=== PATIENT | male | born 1985 | race American Indian/Alaskan Native ===

== ENCOUNTER 2018-08-17 10:38 | Inpatient (IN) | payer BC, OTHER ==
[~2018-08-17] VITALS: Ht 200.7 cm; Wt 109.0 kg
[~2018-08-17 10:38] MED LIST changes: -Acetaminophen325 M1 PO; -Ferrous Sulfat325 M2 PO; -PANT40 PO
[2018-08-17 15:12] LABS: BASOPHILS ABSOLUTE AUTO 0.05 K/mm3 (0.00-0.23); BASOPHILS PERCENT AUTO 1 % (0-2); EOSINOPHILS ABSOLUTE AUTO 0.13 K/mm3 (0.00-0.68); EOSINOPHILS PERCENT AUTO 2 % (0-6); Hematocrit 34.6 % (37.0-53.0); Hemoglobin 11.3 g/dL (13.5-17.5); IMMATURE GRAN ABSOLUTE AUTO 0.03 K/mm3 (0.00-0.10); IMMATURE GRAN PERCENT AUTO 0 % (0-1); LYMPHOCYTES ABSOLUTE AUTO 1.97 K/mm3 (0.84-5.20); LYMPHOCYTES PERCENT AUTO 25 % (21-46); MONOCYTES ABSOLUTE AUTO 0.45 K/mm3 (0.16-1.47); MONOCYTES PERCENT AUTO 6 % (4-13); Mean Corpuscular HGB 28.4 pg (26.0-34.0); Mean Corpuscular HGB Conc 32.7 g/dL (31.5-36.5); Mean Corpuscular Volume 87 fL (80-100); Mean Platelet Volume 10.1 fL (9.1-12.4); NEUTROPHILS PERCENT AUTO 66 % (41-73); Platelet Count 227 K/mm3 (150-400); RDW Coefficient Variation 13.3 % (11.7-14.2); RDW Standard Deviation 41.8 fL (35.1-46.3); Red Blood Cell Count 3.98 M/mm3 (4.30-5.90); White Blood Cell Count 7.83 K/mm3 (4.00-11.30)
[2018-08-17 15:34] LABS: Alanine Aminotransfer (ALT/SGP 25 U/L (12-78); Albumin, Blood 3.3 g/dL (3.4-5.0); Albumin/Globulin Ratio 1.3 (0.8-1.8); Alk Phos 61 U/L (50-136); Anion Gap 4 mmol/L (6-16); Aspartate Aminotrans (AST/SGOT 13 U/L (12-37); Bilirubin, Total 0.4 mg/dL (0.1-1.0); Blood Urea Nitrogen 20 mg/dL (8-24); Bun/Creatinine Ratio 23.9 (12.0-20.0); CO2, Blood 29 mmol/L (21-32); Calcium, Blood 8.3 mg/dL (8.5-10.1); Chloride, Blood 109 mmol/L (98-108); Creatinine, Blood 0.84 mg/dL (0.60-1.20); Globulin, Blood 2.6 g/dL (2.2-4.0); Glomerular Filtration Rate >60 (60-); Glucose, Blood 92 mg/dL (70-99); Potassium, Blood 4.4 mmol/L (3.5-5.5); Sodium, Blood 142 mmol/L (136-145); Total Protein, Blood 5.9 g/dL (6.4-8.2)
[2018-08-17 17:33] LABS: Adenovirus F 40/41 Not Detected (NOT DETECT); Astrovirus Not Detected (NOT DETECT); Campylobacter Sp Not Detected (NOT DETECT); Cryptosporidium Not Detected (NOT DETECT); Cyclospora Cayetanensis Not Detected (NOT DETECT); E. Coli O157 Not Detected (NOT DETECT); Entamoeba Histolytica Not Detected (NOT DETECT); Enteroaggregative E. coli-EAEC Not Detected (NOT DETECT); Enteropathogenic E. coli-EPEC Not Detected (NOT DETECT); Enterotoxigenic E. coli-ETEC Not Detected (NOT DETECT); Giardia Lamblia Not Detected (NOT DETECT); Norovirus GI/GII Not Detected (NOT DETECT); Plesiomonas Shigelloides Not Detected (NOT DETECT); Rotavirus A Not Detected (NOT DETECT); Salmonella Sp Not Detected (NOT DETECT); Sapovirus Not Detected (NOT DETECT); Shiga Toxin-prod E. coli-STEC Not Detected (NOT DETECT); Shigella/Enteroin E. coli-EIEC Not Detected (NOT DETECT); Vibrio Cholerae Not Detected (NOT DETECT); Vibrio Sp Not Detected (NOT DETECT); Yersinia Enterocolitica Not Detected (NOT DETECT)
[2018-08-18 04:14] LABS: Hematocrit 27.8 % (37.0-53.0); Hemoglobin 9.2 g/dL (13.5-17.5); Mean Corpuscular HGB 28.3 pg (26.0-34.0); Mean Corpuscular HGB Conc 33.1 g/dL (31.5-36.5); Mean Corpuscular Volume 86 fL (80-100); Mean Platelet Volume 9.5 fL (9.1-12.4); Platelet Count 191 K/mm3 (150-400); RDW Coefficient Variation 13.3 % (11.7-14.2); RDW Standard Deviation 41.7 fL (35.1-46.3); Red Blood Cell Count 3.25 M/mm3 (4.30-5.90); White Blood Cell Count 5.54 K/mm3 (4.00-11.30)
[2018-08-18 04:28] LABS: Anion Gap 3 mmol/L (6-16); Blood Urea Nitrogen 13 mg/dL (8-24); Bun/Creatinine Ratio 14.7 (12.0-20.0); CO2, Blood 32 mmol/L (21-32); Calcium, Blood 7.7 mg/dL (8.5-10.1); Chloride, Blood 110 mmol/L (98-108); Creatinine, Blood 0.89 mg/dL (0.60-1.20); Glomerular Filtration Rate >60 (60-); Glucose, Blood 85 mg/dL (70-99); Magnesium, Blood 1.9 mg/dL (1.6-2.4); Potassium, Blood 3.8 mmol/L (3.5-5.5); Sodium, Blood 145 mmol/L (136-145)
[2018-08-18 04:29] LABS: International Normalized Ratio 1.08; Prothrombin Time Results 11.4 Sec (9.7-11.5)
--- NOTE | 2018-08-18 07:45 | NUR ---
SHIFT SUMMARY PT ALERT AND ORIENTED X 3 THROUGHOUT SHIFT. HE DENIED ANY UNMET NEEDS DURING THE NIGHT AND CONTINUED TO REMAIN INDEPENDENT IN THE ROOM. PT GOT SOME SLEEP, BUT WAS UP MOST OF THE NIGHT DUE TO HIS BOWEL PREP FOR COLONOSCOPY TODAY. PT DENIED ANY UNMET NEEDS. HE HAS NOT HAD ANY EVIDENCE OF BLOOD IN HIS BMS SINCE ABOUT MIDNIGHT AND HE WAS ABLE TO SUCCESSFULLY COMPLETE HIS PREP. PT HAS HIS AT THE BEDSIDE AND HAS BEEN ABLE TO COMMUNCIATE NEEDS EFFECTIVELY. HE HAS HAD NO ACUTE CHANGES TO VITALS OR LOC AND WILL CONTINUE TO BE MONITORED UNTIL HANDOFF TO DAYSHIFT RN. PT IS PLEASANT AND COOPERATIVE WITH ALL VITALS AND ASSESSMENTS.
--- NOTE | 2018-08-18 08:28 | NUR ---
pt laying in bed awake a/ox3, pleasant and cooperative with care, follows commands well, denies pain, except bottom is burning from freq bm's, gave barrier cream to use, lungs are clear t/o, resp even and unlabored, no cough noted, hrr, tele in place running sr per monitor, see strip, no edema noted, ppp+2, cap refill <3 sec, vs stable, afebrile, iv site is clear and patent, infusing ns at 100mls/hr, btx4, abd flat soft nontender, voids without diff, skin c/w/d, manettie baldwin call light in reach.
--- NOTE | 2018-08-18 09:30 | NUR ---
PT LEFT FOR COLONOSCOPY VIA [facility] WITH DAY SURG NURSE IN ATTENDENCE.
--- NOTE | 2018-08-18 09:40 | NUR ---
FROM PCU TO [facility] VSS. ALERT ORIENTED FAMILY AT BEDSIDE. ADMISSION TO UNIT STARTED History, Chart, Medications and Allergies reviewed before start of procedure.Patient confirms NPO status and agrees with scheduled surgery.
--- NOTE | 2018-08-18 12:00 | NUR ---
PT RETURNED TO ROOM AFTER SCOPE AND SOFIYA EXAM. HIS IS AWAKE, A BIT DROWSY BUT DOING WELL, V.S. STABLE, FAMILY AT BEDSIDE. REPORT WAS THAT NO BLEEDING WAS NOTED. CALL LIGHT IN REACH.
--- NOTE | 2018-08-18 13:00 | NUR ---
pt doing well. up to chair. family in room. call light in reach.
[2018-08-18 15:50] LABS: Hematocrit 25.5 % (37.0-53.0); Hemoglobin 8.5 g/dL (13.5-17.5)
--- NOTE | 2018-08-18 16:30 | NUR ---
call to Dr. Lr regarding h&h, he ordered another tonight at 2200, will keep him overnight and monitor, he also had a black stool, this was reported. informed pt of plan, and that Dr. Lr will see him in the morning, and will monitor in the meantime. asked pt to report any further bleeding, or if having dizziness. call light in reach, family at bedside.
--- NOTE | 2018-08-18 18:47 | NUR ---
pt doing well, and tolerating food, vs stable, no complaints, was out in [place]ow[place] ambulating. gait steady. call light in reach.
[2018-08-18 21:33] LABS: Hematocrit 27.7 % (37.0-53.0); Hemoglobin 9.1 g/dL (13.5-17.5)
--- NOTE | 2018-08-19 06:30 | NUR ---
SHIFT SUMMARY PT ALERT AND ORIENTED X 3 THROUGHOUT SHIFT. HE REAMINED INDEPENDENT IN THE ROOM AND DENIED ANY COMPLAINTS OF PAIN OR DISCOMFORT DURING THE NIGHT. HE CONTINUED TO HAVE SMALL, BLACK SEMI-FORMED BOWEL MOVEMENTS, BUT HIS H AND H IMPROVED SLIGHTLY DURING THE NIGHT. PT ABLE TO MAKE NEEDS KNOWN, HAS CALL LIGHT IN REACH AND USED IT APPROPRIATELY. PT HAS HAD NO ACUTE CHANGES TO VITALS OR LOC. HE SLEPT WELL T/O THE NIGHT. PT IS NPO AT THIS TIME FOR UPPER ENDOSCOPY SCHEDULED FOR THIS MORNING. CONTINUES TO DENY PAIN OR DISCOMFORT. HE WILL CONTINUE TO BE MONITORED UNTIL HANDOFF TO DAYSHIFT RN.
--- NOTE | 2018-08-19 18:27 | NUR ---
ARRIVAL TO UNIT Assumed care of pt at 0700 from Uriel DOMINGUEZ. Pt on room air. Independent in room. Sinus rhythm per telemetry. Pt had dark bowel movement. Pt NPO for EGD. Pt went to have EGD and has been on clear liquid diet since. Tolerating diet well. Pt on protonix drip. Results of hemoglobin drawn after EGD given to Dr Lr over telephone. New orders given. Pt has had one episode of melena since arrival back to unit from day surgery. Pt remains independent in room. Bed in lowest position. Call light in reach. Pt denies need at this time. Will continue to closely monitor until care handoff and bedside report with oncoming RN.
--- NOTE | 2018-08-19 21:50 | NUR ---
PT TRANSFER ASSUMED CARE OF PT AT APPROXIMATELY 1900. PT IS CURRENTLY AOX4 AND INDEPENDENT IN ROOM. SINUS RHYTHM WITH A RATE OF 64 ON TELEMETRY. PROTONIX DRIP INFUSING AT 10 ML/HR. PT REMAINS ON CLEAR LIQUID DIET- TOLERATING WELL. DENIES N/V. DENIES DIZZINESS SINCE PREVIOUS EPISODE EARLIER THIS AFTERNOON/EVENING. PT EDUCATED ON SLOW MOVEMENTS AND CALLING FOR ASSISTANCE WITH AMBULATION IF DIZZINESS REOCCURS. REPORTS SOME TENDERNESS TO R GROIN AREA- NO BRUISING OR SWELLING NOTED ONLY REPORTS TENDERNESS WITH PALPATION- NO DIFFERENCES NOTED FROM R SIDE. PT CURRENTLY RESTING IN BED. REPORT CALLED TO ALBERTO NG TO BE TAKING OVER CARE OF PATIENT.
--- NOTE | 2018-08-20 04:44 | NUR ---
SHIFT SUMMARY: PT IS ALERT AND ORIENTED. PT IS CALM AND COOPERATIVE WITH CARE. PT CALLS APPROPRIATELY. PT IS INDEPENDENT IN THE ROOM. PT'S STAYED IN THE ROOM OVERNIGHT. PROTONIX DRIP RUNNING ORDERED. PT DENIES PAIN, NAUSEA, VOMITING, AND SOB. NO ACUTE CHANGES OR COMPLICATIONS OVERNIGHT.
[2018-08-20 05:49] LABS: BASOPHILS ABSOLUTE AUTO 0.04 K/mm3 (0.00-0.23); BASOPHILS PERCENT AUTO 1 % (0-2); EOSINOPHILS ABSOLUTE AUTO 0.15 K/mm3 (0.00-0.68); EOSINOPHILS PERCENT AUTO 4 % (0-6); Hematocrit 25.1 % (37.0-53.0); Hemoglobin 8.1 g/dL (13.5-17.5); IMMATURE GRAN ABSOLUTE AUTO 0.01 K/mm3 (0.00-0.10); IMMATURE GRAN PERCENT AUTO 0 % (0-1); LYMPHOCYTES ABSOLUTE AUTO 1.27 K/mm3 (0.84-5.20); LYMPHOCYTES PERCENT AUTO 30 % (21-46); MONOCYTES ABSOLUTE AUTO 0.51 K/mm3 (0.16-1.47); MONOCYTES PERCENT AUTO 12 % (4-13); Mean Corpuscular HGB 28.6 pg (26.0-34.0); Mean Corpuscular HGB Conc 32.3 g/dL (31.5-36.5); Mean Platelet Volume 9.7 fL (9.1-12.4); NEUTROPHILS ABSOLUTE AUTO 2.26 K/mm3 (1.96-9.15); NEUTROPHILS PERCENT AUTO 53 % (41-73); Platelet Count 180 K/mm3 (150-400); RDW Coefficient Variation 13.6 % (11.7-14.2); RDW Standard Deviation 43.5 fL (35.1-46.3); Red Blood Cell Count 2.83 M/mm3 (4.30-5.90); White Blood Cell Count 4.24 K/mm3 (4.00-11.30)
[2018-08-20 05:53] LABS: Mean Corpuscular Volume 89 fL (80-100)
[2018-08-20] MEDS ORDERED: Acetaminophen325 M1 PO (09:25)
[2018-08-20] MEDS ORDERED: Ferrous Sulfat325 M2 PO (09:26)
[2018-08-20] MEDS ORDERED: PANT40 PO (09:27)
--- NOTE | 2018-08-20 10:51 | NUR ---
REVIEW D'C W/PATIENT AND S.O. AWARE TO HAVE LAB DRAW BEFORE APPT W/. TO [facility] AT [facility] AND TO MAKE APPT W/PCP. RETURN IF ANY PROBLEMS. TO F/U W/ IN FEW MONTHS. ANSWER ALL QUESTIONS. NOTE FOR WORK GIVEN. WALK DOWN W/WATER TENDER.
--- NOTE | 2018-08-21 08:38 | NUR ---
08/21/18 0837 Lucas Morales Bite Block PlacedPATIENT DETERMINED TO BE ASA APPROPRIATE FOR PROPOFOL SEDATION PRIOR TO START OF PROCEDURE BY .3-LEAD EKG REVIEWED WITH PHYSICIAN PRIOR TO START OF PROCEDURE.Patient to ENDO 1History, Chart, Medications and Allergies reviewed before start of procedure.MONITOR INTACT WITH CONTINUOUS PULSE OXIMETRY AND INTERMITTENT BP.O2 VIA N/C INTACT THROUGHOUT SEDATION/PROCEDURE.
--- NOTE | 2018-08-21 08:40 | NUR ---
08/21/18 0840 Lucas Morales PATIENT DETERMINED TO BE ASA APPROPRIATE FOR PROPOFOL SEDATION PRIOR TO START OF PROCEDURE BY . 3-LEAD EKG REVIEWED WITH PHYSICIAN PRIOR TO START OF PROCEDURE.Patient to ENDO 1History, Chart, Medications and Allergies reviewed before start of procedure.MONITOR INTACT WITH CONTINUOUS PULSE OXIMETRY AND INTERMITTENT BP.O2 VIA N/C INTACT THROUGHOUT SEDATION/PROCEDURE.
== END 2018-08-20 10:46 | disposition home or self-care (01) | DRG 378 ==
LOC: ER 10:38 → MEDS 18:05 → PCU 18:05 → MEDS 08-19 22:08
PROVIDERS: Emergency Medicine; Internal Medicine; Internal Medicine Gastroenterology; Nurse Practitioner Acute Care; ADMIT Internal Medicine
PROC: 0DJD8ZZ Inspection of Lower Intestinal Tract, Via Natural or Artificial Opening Endoscopic (ICD-10-PCS; 2018-08-18)
PROC: 0W3P8ZZ Control Bleeding in Gastrointestinal Tract, Via Natural or Artificial Opening Endoscopic (ICD-10-PCS; principal; 2018-08-19 09:30)
PROC: 0DB68ZX Excision of Stomach, Via Natural or Artificial Opening Endoscopic, Diagnostic (ICD-10-PCS; 2018-08-19 09:30)
DX: K26.4 Chronic or unspecified duodenal ulcer with hemorrhage (principal); D62 Acute posthemorrhagic anemia; R55 Syncope and collapse; K21.9 Gastro-esophageal reflux disease without esophagitis
CPT/HCPCS: 36415; 74177; 78290; 80048; 80053; 82941; 83735; 85014; 85018; 85025; 85027; 85610; 86140; 86850; 86900; 86901; 87338; 87507; 88305; 88342; 93005; 93010; 96360-59; 99285-25; A9270-GY; A9512; C9113; J2250; J2704; J7030; J7120; Q9967

== ENCOUNTER → 2018-08-17 | Outpatient (CLI) | payer BC, OTHER ==
[~2018-08-17] MED LIST: AZIT500; Acetaminophen325 M1 PO; Ferrous Sulfat325 M2 PO; LOPE2C; PANT40 PO
[2018-08-17 10:51] LABS: BASOPHILS ABSOLUTE AUTO 0.03 K/mm3 (0.00-0.23); BASOPHILS PERCENT AUTO 1 % (0-2); EOSINOPHILS ABSOLUTE AUTO 0.29 K/mm3 (0.00-0.68); EOSINOPHILS PERCENT AUTO 5 % (0-6); Hematocrit 33.9 % (37.0-53.0); Hemoglobin 10.9 g/dL (13.5-17.5); IMMATURE GRAN ABSOLUTE AUTO 0.02 K/mm3 (0.00-0.10); IMMATURE GRAN PERCENT AUTO 0 % (0-1); LYMPHOCYTES ABSOLUTE AUTO 1.63 K/mm3 (0.84-5.20); LYMPHOCYTES PERCENT AUTO 28 % (21-46); MONOCYTES ABSOLUTE AUTO 0.35 K/mm3 (0.16-1.47); MONOCYTES PERCENT AUTO 6 % (4-13); Mean Corpuscular HGB 28.5 pg (26.0-34.0); Mean Corpuscular HGB Conc 32.2 g/dL (31.5-36.5); Mean Corpuscular Volume 89 fL (80-100); Mean Platelet Volume 10.1 fL (9.1-12.4); NEUTROPHILS ABSOLUTE AUTO 3.43 K/mm3 (1.96-9.15); NEUTROPHILS PERCENT AUTO 60 % (41-73); Platelet Count 213 K/mm3 (150-400); RDW Coefficient Variation 13.2 % (11.7-14.2); Red Blood Cell Count 3.82 M/mm3 (4.30-5.90); White Blood Cell Count 5.75 K/mm3 (4.00-11.30)
[2018-08-17 11:23] LABS: Alanine Aminotransfer (ALT/SGP 21 U/L (12-78); Albumin, Blood 2.9 g/dL (3.4-5.0); Albumin/Globulin Ratio 1.3 (0.8-1.8); Alk Phos 52 U/L (50-136); Anion Gap 5 mmol/L (6-16); Aspartate Aminotrans (AST/SGOT 14 U/L (12-37); Bilirubin, Total 0.4 mg/dL (0.1-1.0); Blood Urea Nitrogen 20 mg/dL (8-24); Bun/Creatinine Ratio 24.8 (12.0-20.0); CO2, Blood 28 mmol/L (21-32); Calcium, Blood 7.5 mg/dL (8.5-10.1); Chloride, Blood 109 mmol/L (98-108); Creatinine, Blood 0.81 mg/dL (0.60-1.20); Globulin, Blood 2.3 g/dL (2.2-4.0); Glomerular Filtration Rate >60 (60-); Glucose, Blood 136 mg/dL (70-99); Potassium, Blood 3.7 mmol/L (3.5-5.5); Sodium, Blood 142 mmol/L (136-145); Total Protein, Blood 5.2 g/dL (6.4-8.2)
== END ==
LOC: LAB 10:35 → LAB SHORT 10:35
PROVIDERS: Nurse Practitioner
DX: K92.1 Melena (principal)
CPT/HCPCS: 80053; 85025

== ENCOUNTER 2018-11-28 10:30 | Day surgery (SDC) | payer BC, OTHER, SELFPAY ==
[~2018-11-28] VITALS: Ht 200.7 cm; Wt 103.6 kg
[~2018-11-28 10:30] MED LIST changes: +Acetaminophen325 M1 PO; +Ferrous Sulfat325 M2 PO; +PANT40 PO
[2019-02-06] MEDS ORDERED: SUCR1 PO (10:19)
== END 2018-11-28 13:01 | disposition home or self-care (01) ==
LOC: ORSCSDS 10:30
PROVIDERS: Internal Medicine Gastroenterology
PROC: 0DB68ZX Excision of Stomach, Via Natural or Artificial Opening Endoscopic, Diagnostic (ICD-10-PCS; principal; 2018-11-28 11:45)
DX: K27.9 Peptic ulcer, site unspecified, unspecified as acute or chronic, without hemorrhage or perforation (principal); F17.210 Nicotine dependence, cigarettes, uncomplicated; Z87.891 Personal history of nicotine dependence; Z79.899 Other long term (current) drug therapy
CPT/HCPCS: 88305; J2250; J2704; J7120

== ENCOUNTER 2019-02-13 08:41 | Day surgery (SDC) | payer BC, OTHER, SELFPAY ==
[~2019-02-13] VITALS: Ht 200.7 cm; Wt 103.0 kg
[~2019-02-13 08:41] MED LIST changes: +SUCR1 PO
--- NOTE | 2019-02-13 09:26 | NUR ---
02/13/19 0926 Radu Yan CALL LIGHT WITHIN REACH. FAMILY AT BEDSIDE
--- NOTE | 2019-02-13 12:48 | NUR ---
02/13/19 1248 Elise Morataya V PT RESTING IN RECLINER WITH EYES CLOSED, VSS. PT MEDICATED FOR PAIN PER ORDERS. PT'S AT CHAIR SIDE. PT STATES HE IS STILL GROGGY, STATES PT IS SLOW TO AWAKE AFTER ANESTHESIA. CONTINUING TO MONITOR PT UNTIL HE IS MORE ALART AND READY FOR D/C INSTRUCTIONS.
== END 2019-02-13 13:06 | disposition home or self-care (01) ==
LOC: ORSCSDS 08:41
PROVIDERS: Otolaryngology
PROC: 09BM0ZZ Excision of Nasal Septum, Open Approach (ICD-10-PCS; principal; 2019-02-13 10:00)
PROC: 09TL0ZZ Resection of Nasal Turbinate, Open Approach (ICD-10-PCS; principal; 2019-02-13 10:00)
DX: J34.3 Hypertrophy of nasal turbinates (principal); J34.2 Deviated nasal septum; K21.9 Gastro-esophageal reflux disease without esophagitis; Z79.899 Other long term (current) drug therapy
CPT/HCPCS: A9270-GY; J1100; J2250; J2405; J2704; J3010; J7120

== ENCOUNTER → 2019-12-28 | Outpatient (CLI) | payer BC, OTHER ==
[2019-12-28 15:52] LABS: BASOPHILS ABSOLUTE AUTO 0.07 K/mm3 (0.00-0.23); BASOPHILS PERCENT AUTO 1 % (0-2); EOSINOPHILS ABSOLUTE AUTO 0.42 K/mm3 (0.00-0.68); EOSINOPHILS PERCENT AUTO 7 % (0-6); Hematocrit 45.7 % (37.0-53.0); Hemoglobin 14.7 g/dL (13.5-17.5); IMMATURE GRAN ABSOLUTE AUTO 0.01 K/mm3 (0.00-0.10); IMMATURE GRAN PERCENT AUTO 0 % (0-1); LYMPHOCYTES ABSOLUTE AUTO 1.78 K/mm3 (0.84-5.20); LYMPHOCYTES PERCENT AUTO 31 % (21-46); MONOCYTES PERCENT AUTO 7 % (4-13); Mean Corpuscular HGB 26.3 pg (26.0-34.0); Mean Corpuscular HGB Conc 32.2 g/dL (31.5-36.5); Mean Corpuscular Volume 82 fL (80-100); Mean Platelet Volume 10.1 fL (9.1-12.4); NEUTROPHILS ABSOLUTE AUTO 3.05 K/mm3 (1.96-9.15); NEUTROPHILS PERCENT AUTO 53 % (41-73); Platelet Count 228 K/mm3 (150-400); RDW Coefficient Variation 14.2 % (11.7-14.2); RDW Standard Deviation 40.9 fL (35.1-46.3); Red Blood Cell Count 5.58 M/mm3 (4.30-5.90); White Blood Cell Count 5.73 K/mm3 (4.00-11.30)
[2019-12-28 16:03] LABS: CHOL/HDL RATIO 4.2; Cholesterol 203 mg/dL (50-200); HDL Cholesterol 48 mg/dL (>39); LDL/HDL RATIO 2.8; Low Density Lipoprotein Chol 133 mg/dL (0-110); Triglycerides 108 mg/dL (30-140); Very Low Density Lipoprot Chol 21 mg/dL (6-28)
[2019-12-28 16:16] LABS: Alanine Aminotransfer (ALT/SGP 28 U/L (12-78); Albumin, Blood 3.8 g/dL (3.4-5.0); Albumin/Globulin Ratio 1.2 (0.8-1.8); Alk Phos 85 U/L (50-136); Anion Gap 5 mmol/L (6-16); Aspartate Aminotrans (AST/SGOT 19 U/L (12-37); Bilirubin, Total 0.4 mg/dL (0.1-1.0); Blood Urea Nitrogen 16 mg/dL (8-24); Bun/Creatinine Ratio 15.2 (12.0-20.0); CO2, Blood 26 mmol/L (21-32); Calcium, Blood 8.7 mg/dL (8.5-10.1); Chloride, Blood 111 mmol/L (98-108); Creatinine, Blood 1.05 mg/dL (0.60-1.20); Globulin, Blood 3.2 g/dL (2.2-4.0); Glomerular Filtration Rate >60 (60-); Glucose, Blood 101 mg/dL (70-99); Potassium, Blood 3.7 mmol/L (3.5-5.5); Sodium, Blood 142 mmol/L (136-145)
== END | disposition home or self-care (01) ==
LOC: LAB SHORT 12:23 → LAB 12:23
PROVIDERS: Family Medicine
DX: Z00.00 Encounter for general adult medical examination without abnormal findings (principal)
CPT/HCPCS: 36415; 80053; 80061; 85025